=== PATIENT | female | born 1965 | race Caucasian/White ===

== ENCOUNTER → 2016-11-21 | Outpatient (REF) | payer BC | LOC: M SFHCLERA 13:55 → EEVIPCON 13:55 | PROVIDERS: ATTEND Physician Assistant | DX: N39.0 Urinary tract infection, site not specified (principal) ==

== ENCOUNTER → 2017-04-06 | Outpatient (CLI) | payer BC ==
--- NOTE | 2017-04-06 12:25 | REP ---
MRI LEFT SHOULDER: TECHNIQUE: Axial T2 fat sat, gradient echo, sagittal oblique T2 fat sat, coronal oblique T1, T2 fat sat. Supraspinatus tendon demonstrates ill-defined high signal compatible with tendinopathy/tendonitis. No rotator cuff tear is seen. There are mild hypertrophic degenerative changes of acromioclavicular joint with mild subchondral marrow edema on both sides of the joint. Acromion is downward sloping and type 1. Biceps tendon is within the bicipital groove with no tenosynovitis. There is on Hill-Sachs deformity. Deltoid muscle demonstrates no abnormal signal. There is fraying of the biceps labral complex and superior labrum. Otherwise no discrete labral tear is seen. There is no paralabral cyst. There are subchondral cystic changes in the posterior humeral head. No occult fracture is seen. There is no acute effusion. IMPRESSION: Supraspinatus tendinopathy/tendonitis. No rotator cuff tear. Fraying at the biceps labral complex and of the superior labrum. Otherwise no discrete labral tear. Mild hypertrophic degenerative changes acromioclavicular joint with downward sloping acromion likely causing some degree of impingement on the supraspinatus tendon. Subchondral cystic changes humeral head. Signed by Guido Mckeon MD 04/06/2017 05:22 P
== END ==
LOC: M RAD 10:52
PROVIDERS: ATTEND Family Medicine
DX: M25.512 Pain in left shoulder (principal)